=== PATIENT | male | born 2000 | race Caucasian/White ===

== ENCOUNTER 2019-05-06 22:44 | Emergency (ER) | payer OTHER, SELFPAY ==
[2019-05-06 22:45] VITALS: BP 172/97; PULSE 90; RESP 18; TEMP 36.6; O2SAT 98; BMI 39.4
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
== END 2019-05-07 00:02 | disposition home or self-care (01) ==
LOC: ED 23:43
PROVIDERS: Emergency Provider Emergency Medicine; Family Provider Family Medicine; PCP Family Medicine
DX: S80.02XA Contusion of left knee, initial encounter (principal); W50.1XXA Accidental kick by another person, initial encounter; Y92.129 Unspecified place in nursing home as the place of occurrence of the external cause; Y99.0 Civilian activity done for income or pay; G89.29 Other chronic pain; M54.2 Cervicalgia
CPT/HCPCS: 73564; 99282

== ENCOUNTER 2021-06-26 12:20 | Day surgery (SDC) | payer OTHER, SELFPAY ==
[2021-06-26 12:57] VITALS: BP 140/84; PULSE 85; RESP 16; TEMP 36.8; O2SAT 99; BMI 43.0
[2021-06-26] MEDS: Lactated Ringers 1,000 ML 15 ML IV (13:02)
--- NOTE | 2021-06-26 13:11 | PCM.HP.BLA ---
History and Physical Date of Admission: 06/26/21 Details: MARY RODRIGUEZ, is a 21 M who presents to the office today for Last visit 05/23/21 for continued evaluation of diarrhea. Symptoms last visit had overall improved. Continued to have frequent diarrhea 5-7BM a day. Treated with Xifaxan. IBS-D ? Continue Xifaxan for another two weeks, PPI, digestive enzymes. Start probiotic. Feels like symptoms have gotten a little worse. Increased diarrhea with blood in stool. Some abdominal cramping noted. CT of the abdomen/pelvis performed at another facility brought in today - Hypoattenuating 1.2cm lesion located on the dome of the liver. ROS Const Constitutional: Positive for fatigue and headache(s) ENT ENT: Positive for headache(s) Cardio Cardiology: Positive for chest pain at rest and leg pain with exertion Gastro GI: Positive for abdominal pain, change in bowel habits, diarrhea, heartburn and Blood in stool Musc Musculoskeletal: Positive for joint pain, joint swelling, Arthritis, leg pain at night and leg pain with exertion Neuro Neurology: Positive for headache(s) Endo Endocrine: Positive for fatigue Quality Reporting Tobacco Screening (CMS 138) Smoking Status: Never smoker Assessment and Plan Assessment and Plan (1) Liver lesion: Status: Acute Orders: Orders: Abdomen Limited Today Plan - Dr. Yanes Friend, DO: The differential diagnosis for the lesion on his liver is a hemangioma, hepatic cyst, focal nodular hyperplasia. He will undergo an ultrasound and possible biopsy. We will also get a baseline alpha-fetoprotein. He has no previous history of liver disease. (2) Diarrhea: Status: Acute Orders: Orders: EGD Today Plan - Dr. Yanes Friend, DO: The differential diagnosis for his diarrhea does include celiac disease, irritable bowel syndrome with diarrhea, accelerated gastrocolic reflex. He did really well on Xifaxan therapy however his insurance is not going to pay for the medicine anymore. I will put him on Doxycycline and budesonide therapy. Plan Details Other Medications: New: budesonide 9 mg PO QAM 30 ea 2RF doxycycline hyclate 100 mg PO BID 60 caps 1RF I have re-examined the patient. There are no clinical changes since date of exam.
--- NOTE | 2021-06-26 13:30 | IMM_PTH ---
PATIENT: MARY AGUIRRE LOC: EN U#:[id number] AGE/SX: 21/M ROOM: RE06/26/[address]: Dr. Joaquín Marquez DO : 2000 BED: DIS: 06/26/2021 SPEC #: [id number] RECD: 06/27/21 10:40 STATUS: ADRIEN REAnnel #: [id number] RICARDO: 06/26/21 13:[address]: Joaquín Marquez DEPT: IMMUNOHISTOCHEMISTRY RECD BY: Keyla Moon ENTERED: 06/27/21 10:40 SP TYPE: IMMUNO OTHR DR: Dr. Tomer Aguirre MD Tissues: B - Stomach, NOS Procedures: H Pylori (initial) PHYSICIAN & INSTITUTION [place] [phone] SPECIMEN INFORMATION: Tissue Source: B ? Antrum biopsy Clinical Info: Diarrhea Specimen Number: [id number] CPT code: 01604 METHODOLOGY: Deparaffinized sections of prefer/formalin-fixed tissue or PAP/DQ stained slides are incubated with monoclonal/polyclonal antibodies/oligonucleotide probes. Localization is made via biotin free immunoperoxidase method. Appropriate controls are performed and reacted as expected. Results on target cell population are indicated in the following table: RESULTS: ANTIBODY / CLONE RESULT Block B H Pylori (polyclonal) negative These tests were developed and their performance characteristics determined by [facility]. They may not have been cleared or approved by the U.S. Food and Drug Administration. The FDA has determined that such clearance or approval is not necessary. INTERPRETATION: B. Antrum biopsy: Negative for Helicobacter pylori organisms. AM:ciarra 06/28/2021
--- NOTE | 2021-06-26 13:30 | EGD_PTH ---
PATIENT: MARY AGUIRRE LOC: EN U#:[id number] AGE/SX: 21/M ROOM: RE06/26/[address]: Dr. Joaquín Marquez DO : 2000 BED: DIS: 06/26/2021 SPEC #: [id number] RECD: 06/26/21 16:25 STATUS: ADRIEN CHAD #: [id number] RICARDO: 06/26/21 13:[address]: Joaquín Marquez DEPT: SURGICAL PATHOLOGY RECD BY: Ken Dorman ENTERED: 06/27/21 09:44 SP TYPE: EGD BIOPSY OT DR: Dr. Tomer Aguirre MD Tissues: A - Duodenum, NOS B - Gastric mucous membrane C - Esophagus, NOS Procedures: Special Stain Group II Surgery Specimen Level IV Alcian Blue/PAS (control) HEADER OPERATION: EGD ([facility]) PRE-OP DIAGNOSIS: Diarrhea TISSUE SUBMITTED: A ? Duodenum biopsy, B ? Antrum biopsy for histo and H. pylori, C ? Distal esophagus biopsy MICROSCOPIC DIAGNOSIS A. 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 B. Gastric antrum, biopsy: Chronic gastritis. See comment. C. Distal esophagus, biopsy: Fragments of gastric mucosa with mild chronic inflammation. No evidence of goblet cell metaplasia. See comment. AM:ciarra 06/28/2021 COMMENT B. The results of immunohistochemistry for Helicobacter pylori will be reported separately ([id number]). C. Alcian blue/PAS stain with matched control supports the above diagnosis. MICROSCOPIC DESCRIPTION Slides are reviewed. GROSS DESCRIPTION A - Received in fixative is one container labeled with the patient's name and designated duodenum biopsy. The specimen consists of multiple irregular fragments of light figueroa soft tissue that in aggregate measure 1 x 0.6 x 0.1 cm. The specimen is totally submitted in one cassette. B - Received in fixative is one container labeled with the patient's name and designated antrum biopsy. The specimen consists of multiple irregular fragments of light figueroa soft tissue that in aggregate measure 1 x 0.8 x 0.1 cm. The specimen is totally submitted in one cassette. C - Received in fixative is one container labeled with the patient's name and designated distal esophagus. The specimen consists of two irregular fragments of light figueroa soft tissue that in aggregate measure 1 x 0.6 x 0.1 cm. The specimen is totally submitted in one cassette. / AM:ciarra 06/27/21 TC:3 CPT: 10198 x3, 94494
[2021-06-26 14:35] VITALS: BP 114/67; BP 140/84; PULSE 93; RESP 18; TEMP 36.3; O2SAT 99
--- NOTE | 2021-06-26 14:38 | OP.EGD_ITS ---
Patient Name: Melvin Aguirre Procedure Date: 06/26/2021 2:12 PM Date of : 2000 Age: 21 Procedure: Upper GI endoscopy Indications: Epigastric abdominal pain, Functional Dyspepsia Providers: Joaquín Marquez DO Medicines: See the Anesthesia note for documentation of the administered medications Patient Profile: This is a 21 year old male. Refer to note in patient chart for documentation of history and physical. Patient has symptoms. The symptoms first began December. He is status post EGD for biopsy. Complications: No immediate complications. Procedure: Pre-Anesthesia Assessment: - Prior to the procedure, a History and Physical was performed, and patient medications and allergies were reviewed. The risks and benefits of the procedure and the sedation options and risks were discussed with the patient. All questions were answered and informed consent was obtained. Patient identification and proposed procedure were verified by the physician in the pre-procedure area. Mental Status Examination: alert and oriented. Airway Examination: normal oropharyngeal airway and neck mobility. Respiratory Examination: clear to auscultation. CV Examination: normal. Prophylactic Antibiotics: The patient does not require prophylactic antibiotics. Prior Anticoagulants: The patient has taken no previous anticoagulant or antiplatelet agents. ASA Grade Assessment: II - A patient with mild systemic disease. After reviewing the risks and benefits, the patient was deemed in satisfactory condition to undergo the procedure. The anesthesia plan was to use moderate sedation / analgesia (conscious sedation). Immediately prior to administration of medications, the patient was re-assessed for adequacy to receive sedatives. The heart rate, respiratory rate, oxygen saturations, blood pressure, adequacy of pulmonary ventilation, and response to care were monitored throughout the procedure. The physical status of the patient was re-assessed after the procedure. After obtaining informed consent, the endoscope was passed under direct vision. Throughout the procedure, the patient's blood pressure, pulse, and oxygen saturations were monitored continuously. The gastroscope was introduced through the mouth, and advanced to the duodenal bulb. The upper GI endoscopy was accomplished without difficulty. The patient tolerated the procedure well. Moderate Sedation: Moderate (conscious) sedation was administered by the endoscopy nurse and supervised by the endoscopist. The patient's oxygen saturation, heart rate, blood pressure and response to care were monitored. Total physician intraservice time was 15 minutes. Scope In: 2:22:57 PM Scope Out: 2:30:17 PM Total Procedure Duration Time 0 hours 7 minutes 20 seconds Findings: LA Grade A (one or more mucosal breaks less than 5 mm, not extending between tops of 2 mucosal folds) esophagitis with no bleeding was found 34 to 35 cm from the incisors. Biopsies were taken with a cold forceps for histology. Verification of patient identification for the specimen was done. Estimated blood loss was minimal. A medium-sized hiatal hernia was present. Localized mild inflammation characterized by congestion (edema) and erythema was found in the stomach. I suspect that it is from bile gastritis. Biopsies were taken with a cold forceps for histology. Verification of patient identification for the specimen was done. Estimated blood loss was minimal. No gross lesions were noted in the second portion of the duodenum. Biopsies were taken with a cold forceps for histology. Verification of patient identification for the specimen was done. Estimated blood loss was minimal. Impression: - LA Grade A reflux esophagitis. Biopsied. - Medium-sized hiatal hernia. - Chronic gastritis. Biopsied. - No gross lesions in the second portion of the duodenum. Biopsied. Recommendation: - Discharge patient to home. - Resume previous diet. - Continue present medications. - Await pathology results. - Repeat upper endoscopy in 1 year for surveillance. - Return to GI office in 2 weeks. Procedure Code(s): --- Professional --- 81256, Esophagogastroduodenoscopy, flexible, transoral; with biopsy, single or multiple G0500, Moderate sedation services provided by the same physician or other qualified health senior care manager performing a gastrointestinal endoscopic service that sedation supports, requiring the presence of an independent trained observer to assist in the monitoring of the patient's level of consciousness and physiological status; initial 15 minutes of intra-service time; patient age 5 years or older (additional time may be reported with 88323, as appropriate) CPT copyright 2017 [employer]. All rights reserved. The codes documented in this report are preliminary and upon asbestos siding mechanic review may be revised to meet current compliance requirements. Joaquín Marquez DO 06/26/2021 2:37:51 PM This report has been signed electronically. Number of Addenda: 1 Note Initiated On: 06/26/2021 2:12 PM Addendum Number: 1 Addendum Date: 03/27/2022 7:04:31 AM MAC was used instead of moderate sedation for the patient. Joaquín Marquez DO 03/27/2022 7:04:35 AM This report has been signed electronically.
--- NOTE | 2021-06-26 14:38 | OP.CCLET_ITS ---
03/27/2022 Tomer Aguirre Re : Upper GI endoscopy procedure for Melvin Aguirre This procedure was performed on Saturday, June 26, 2021. My impressions and recommendations are as follows: Impressions : - LA Grade A reflux esophagitis. Biopsied. - Medium-sized hiatal hernia. - Chronic gastritis. Biopsied. - No gross lesions in the second portion of the duodenum. Biopsied. Recommendations : - Discharge patient to home. - Resume previous diet. - Continue present medications. - Await pathology results. - Repeat upper endoscopy in 1 year for surveillance. - Return to GI office in 2 weeks. My findings are described in the full procedure note, which is enclosed. If I can be of further assistance, please feel free to contact me at . Sincerely, Joaquín Friend, 06/26/2021 2:37:51 PM This report has been signed electronically.
[2021-06-26 14:40] VITALS: BP 126/72; BP 140/84; PULSE 88; RESP 18; O2SAT 98
[2021-06-26 14:45] VITALS: BP 124/71; BP 140/84; PULSE 79; RESP 18; O2SAT 99
[2021-06-26 14:50] VITALS: BP 116/69; BP 140/84; PULSE 74; RESP 18; TEMP 36.2; O2SAT 98
[2021-06-26 15:08] VITALS: BP 140/84
== END 2021-06-26 15:18 ==
LOC: EN 12:24 → AC 12:25
PROVIDERS: PCP Family Medicine; Referring Provider Family Medicine; Visit Provider Internal Medicine Gastroenterology
PROC: 0DJ08ZZ Inspection of Upper Intestinal Tract, Via Natural or Artificial Opening Endoscopic (ICD-10-PCS; CPT 43235; principal; 2021-06-26 13:25)
DX: K30 Functional dyspepsia (principal); K29.50 Unspecified chronic gastritis without bleeding; K44.9 Diaphragmatic hernia without obstruction or gangrene; K21.00 Gastro-esophageal reflux disease with esophagitis, without bleeding; K76.9 Liver disease, unspecified
CPT/HCPCS: 43239; 87426; 88305; 88313; 88342; J7120; J2405

== ENCOUNTER → 2021-06-27 09:11 | Outpatient (CLI) | payer OTHER, SELFPAY ==
--- NOTE | 2021-06-27 09:13 | US_ITS ---
STUDY: ABDOMINAL ULTRASOUND - RIGHT UPPER QUADRANT REASON FOR VISIT: Male, 21 years old Liver lesion dome of liver TECHNIQUE: Ultrasound evaluation of the right upper quadrant was performed with real-time and static gusman-scale imaging. TECHNICAL QUALITY: Adequate. COMPARISON: None. FINDINGS: Liver: The liver measures 17.5 cm. There is increased echogenicity consistent with fatty infiltration. The bile ducts are within normal limits. There is hepatic color flow. The direction of portal flow is hepatopetal. There is no demonstrated mass lesion. Gallbladder: The patient is status post cholecystectomy. Common Bile Duct (C.B.D.): The common bile duct measures 6 mm. Pancreas: Normal size of the head, body of the pancreas. The tail portion is obscured due to overlying bowel gas. There is no demonstrated pancreatic mass or cyst. Right Kidney: Normal size of the right kidney. The right kidney measures 10.6 cm x 6.2 cm x 5.4 cm. Normal renal cortex. The right cortex measures 1.7 cm. There is no demonstrated renal mass or cyst. There is no right hydronephrosis. US/Abdomen Limited IMPRESSION: Fatty infiltration of the liver. No abnormality is seen on the examination. Electronically Signed: Domingo Jeff MD at 14:59 EST , Service support ,
== END ==
PROVIDERS: PCP Family Medicine; Referring Provider Internal Medicine Gastroenterology; Visit Provider Internal Medicine Gastroenterology
DX: K76.9 Liver disease, unspecified (principal)
CPT/HCPCS: 76705